=== PATIENT | female | born 1995 | race Caucasian/White ===

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

== ENCOUNTER 2017-08-28 10:21 | Emergency (ER) | payer OTHER ==
[2017-08-28 11:33] VITALS: BP 132/84
--- NOTE | 2017-08-28 11:53 | UC ---
Complaint Female HPI - HPI Summary HPI Summary: URINARY FREQUENCY X 2 DAYS BURNING ON URINATION , LOWER BACK PAIN NO FEVER, NO CHILLS, NO FLANK PAIN - History Of Current Complaint Chief Complaint: UCBackPain Stated Complaint: URINARY Time Seen by Provider: 08/28/17 11:26 Hx Obtained From: Patient Hx Last Menstrual Period: 7 months pregant ?: Yes Onset/Duration: Gradual Onset, Lasting Days - 2, Still Present Timing: Constant Severity Initially: Moderate Severity Currently: Moderate Character: Burning Aggravating Factor(s): Urination Alleviating Factor(s): Nothing Associated Signs And Symptoms: Negative: Fever, Back Pain, Vaginal Bleeding/ Discharge, Vaginal Discharge, Nausea, Vomiting(# Of Episodes =), Genital Swelling, Genital Blisters - Allergies/Home Medications Allergies/Adverse Reactions: Allergies Allergy/AdvReac Type Severity Reaction Status Date / Time Amoxicillin Allergy Severe FEVER, Verified 09/17/16 20:34 THROAT SWELLING, DIFFICULTY BREATHING Home Medications: Home Medications Prenat Vit W/ Iron Carbonyl-Fe [Ob Complete/Dha] 1 cap PO DAILY 08/28/17 [ History Confirmed 08/28/17] Sertraline* [Zoloft*] 25 mg PO DAILY 08/28/17 [History Confirmed 08/28/17] PMH/Surg Hx/FS Hx/Imm Hx Previously Healthy: Yes - Surgical History Surgical History: Yes Surgery Procedure, Year, and Place: T&A AGE 7. WISDOM TEETH EXTRACTIONS AGE 17 - Family History Known Family History: Positive: None Negative: Cardiac Disease, Hypertension, Diabetes Family History: no cardiovascular disease in family lineage - Social History Alcohol Use: None Substance Use Type: None Smoking Status (MU): Never Smoked Tobacco - Immunization History Most Recent Tetanus Shot[place] Review of Systems Constitutional: Negative Skin: Negative Eyes: Negative ENT: Negative Respiratory: Negative Genitourinary: Dysuria, Frequency Motor: Negative Is Patient Immunocompromised?: No All Other Systems Reviewed And Are Negative: Yes Physical Exam Triage Information Reviewed: Yes Appearance: Well-Appearing, No Pain Distress, Well-Nourished Vital Signs: Initial Vital Signs Temp 98.1 F 08/28/17 11:25 Pulse 92 08/28/17 11:25 Resp 16 08/28/17 11:25 BP 132/84 08/28/17 11:25 Pulse Ox 98 08/28/17 11:25 ENT Exam: Normal ENT: Positive: Normal ENT inspection, Hearing grossly normal, Pharynx normal Neck: Positive: Supple, Nontender, No Lymphadenopathy Respiratory: Positive: Chest non-tender, Lungs clear, Normal breath sounds Cardiovascular: Positive: RRR, No Murmur, Pulses Normal Abdomen Description: Positive: Nontender, Soft, Other: - GRAVID. Negative: CVA Tenderness (R), CVA Tenderness (L), Distended, Guarding Bowel Sounds: Positive: Present Neurological Exam: Normal Neurological: Positive: Alert Skin Exam: Normal Complaint Female Dx - Differential Dx/Diagnosis Provider Diagnoses: UTI Discharge - Discharge Plan Condition: Stable Disposition: HOME Prescriptions: Cephalexin CAP* [Keflex CAP*] 500 mg PO TID #21 cap Patient Education Materials: Urinary Tract Infection in (ED) Referrals: Nadira Posey MD [Primary Care Provider] - 7 Days
== END 2017-08-28 11:53 | disposition home or self-care (01) ==
LOC: UCCORT 10:21
DX: N39.0 Urinary tract infection, site not specified (principal); Z88.0 Allergy status to penicillin
CPT/HCPCS: 81003; 87086; 99212; G0463